=== PATIENT | female | born 1965 | race Caucasian/White ===

== ENCOUNTER → 2018-01-14 07:00 | Outpatient (CLI) | payer OTHER, SELFPAY ==
--- NOTE | 2018-01-14 07:45 | MRI_ITS ---
STUDY: MRI CERVICAL SPINE WITHOUT CONTRAST REASON FOR EXAM: Female, 52 years old. Degenerative disc disease and neck pain. TECHNIQUE: Standardized fat and water weighted pulse sequences were obtained in the sagittal and axial planes. COMPARISON: None FINDINGS: Normal foramen magnum and brainstem-cervical cord junction. Normal craniovertebral junction. Normal anterior atlantoaxial articulation. Normal odontoid process. Normal cervical lordosis. Normal vertebral bodies and posterior osseous elements. C2-3: Normal endplates. Normal disc height, signal and morphology. Normal central canal and intervertebral neural foramina. C3-4: Normal endplates. Normal disc height, signal and morphology. Normal central canal and intervertebral neural foramina. C4-5: Normal endplates. Normal disc height, signal and morphology. Normal central canal and intervertebral neural foramina. C5-6: Normal endplates. Normal disc height, signal and morphology. Normal central canal and intervertebral neural foramina. C6-7: Normal endplates. Normal disc height, signal and morphology. Normal central canal and intervertebral neural foramina. C7-T1: Normal endplates. Normal disc height, signal and morphology. Normal central canal and intervertebral neural foramina. Normal cervical cord. Normal visualized soft tissue structures. MRI/Spine Cervical (Routine) IMPRESSION: Normal unenhanced MR examination of the cervical spine. Electronically Signed: Leonard Youssef MD at 0:00 EDT , Service support ,
[2018-01-14 10:22] LABS: ALB/GLOB Ratio 1.1 RATIO (0.9-2.4); AST(SGOT) 15 U/L (15-37); Alanine Aminotransfer ALT/SGPT 28 U/L (13-56); Albumin, Serum 3.5 g/dL (3.2-5.0); Alkaline Phosphatase 80 U/L (45-117); Anion Gap 8 (5-15); BUN 15 mg/dL (7-18); BUN/Creat Ratio 22.5 RATIO (10-20); Calcium,Total 8.6 mg/dL (8.5-10.1); Chloride 106 mmol/L (98-107); Cholesterol 141 mg/dL (200); Creatinine, Serum 0.67 mg/dL (0.55-1.02); EST Glomerular Filtration Rate 98 mL/min (>60); Est Glom Filt Rate - Afr Amer 119 mL/min (>60); Globulin 3.3 g/dL (2.2-4.2); Glucose 107 mg/dL (74-106); High Density Lipoprotein 43 mg/dL; Potassium 4.3 mmol/L (3.5-5.1); Protein, Total 6.8 g/dL (6.4-8.2); Sodium Level 142 mmol/L (136-145); Thyroid Stim Hormone (TSH) 2.17 uIU/mL (0.358-3.74); Triglycerides 100 mg/dL; Very Low Density Lipoprotein 20 mg/dL (5-40)
== END ==
PROVIDERS: Family Provider Family Medicine; PCP Family Medicine; Visit Provider Family Medicine
DX: E11.9 Type 2 diabetes mellitus without complications (principal); M50.30 Other cervical disc degeneration, unspecified cervical region
CPT/HCPCS: 36415; 72141; 80053; 80061; 84443

== ENCOUNTER → 2018-01-19 16:14 | Outpatient (CLI) | payer OTHER, SELFPAY ==
--- NOTE | 2018-01-19 16:17 | BI_ITS ---
MAMMOGRAPHY - BILATERAL SCREENING REASON FOR EXAM: Female, 52 years old. Routine annual screening examination. PERTINENT HISTORY: Non-contributory. TECHNIQUE: Digital bilateral breast brittany (3D mammographic acquisition) in the CC and MLO projections. 2-D mediolateral oblique (MLO) and craniocaudad (CC) views of both breasts were obtained. CAD: Full Field Digital Mammography with Computer Added Detection was performed. COMPARISON: Comparison is made with prior study dated May 12, 2016 and November 28, 2013. FINDINGS: Breast Composition: The breasts are almost entirely fatty. There are no dominant masses or suspicious calcifications. Stable bilateral benign appearing axillary lymph nodes. No other significant abnormalities are identified. There has been no significant change since the prior study. BI/SCREENING MAMM (CAD), BILAT IMPRESSION: Stable bilateral screening mammogram. Yearly follow-up mammogram recommended. (A) ASSESSMENT CATEGORY: BIRADS Category 2: Benign. A letter regarding these results will be sent to the patient by the facility within 30 days. Approximately 10% of breast cancers are not detected by mammography. A normal mammogram should not delay biopsy of a clinically suspicious abnormality. [id number] Electronically Signed: Michael Benitez MD at 8:00 EDT Tel [phone], Service support ,
== END ==
PROVIDERS: Family Provider Family Medicine; PCP Family Medicine; Visit Provider Obstetrics & Gynecology
DX: Z12.31 Encounter for screening mammogram for malignant neoplasm of breast (principal)
CPT/HCPCS: 77063; 77067

== ENCOUNTER 2018-03-15 16:30 | Outpatient (RCR) | payer OTHER, SELFPAY ==
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
--- NOTE | 2018-03-15 17:02 | HP.PTDCSUM ---
HP - PT D/C Summary It has been my pleasure to treat KELLY ARGUETA under orders from Wilton Horn, for the diagnosis of CHRONIC NECK PAIN AND ROGER PARESTHEISIAS. for a total of 10 visit(s). Discharge Date: Please see the following information for a summary of their discharge status. - Subjective Subjective: PATIENT REPORTS THAT SHE FEELS LIKE SHE HAS COME A LONG WAY. PATIENT REPORTS SHE FEELS LIKE SHE IS GOING TO ALWAYS HAVE A LITTLE BIT OF PAIN WITH HER CONDITION. EVER SINCE SHE STARTED USING THE HOME TRACTION UNIT SHE IS ABLE TO ABOLISH HER PAIN AFTER WORK, SLEEP WELL AND GET UP WITHOUT PAIN. JUST CAME TO THIS APPOINTMENT FROM WORK AND WAS ON THE COMPUTER 95% OF THE THE DAY. STILL HOPEFUL THAT THE STANDING DESK SHE IS GOING TO GET WILL HELP. CURRENTLY HAS A HEADACHE BUT THIS IS THE ONLY ONE SHE HAS HAD IN A WEEK AND SHE THINKS IT WILL GO AWAY WITH HER HOME TX. PATIENT REPORTS SHE IS VERY HAPPY WITH THE PROGRESS SHE HAS MADE. - Pain RIGHT SHOULDER BLADE Pain Intensity (Out of 10): 1 NECK Pain Intensity (Out of 10): 1 ROGER UE'S Pain Intensity (Out of 10): 0 - Overall Improvement % Improvement: 98 - Objective Objective/Function: ALL GOALS MET. PATIENT IS HAVING MUCH LESS PAIN AND IS INDEP WITH A HOME EX PROGRAM ALONG WITH SUCCESSFUL TEST OF HOME TX UNIT. 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 ROGER UE STRENGTH. Sensory deficit: 5/5 WITH MMT'ING AND NO C/O PAIN WITH TESTING. ROGER UE LIGHT TOUCH SENSATION IS INTACT AND SYMMETRICAL. ROM deficit: ROGER UE'S WFL. Cervical Mvmt Loss: Flex: MIN. Pro: NIL. Ext: MOD. Ret: MOD. RSB: MOD. LSB: MOD. R Rot: MIN. L Rot: MOD. PATIENT DENIES INCEASED NECK PAIN WITH CERVICAL ROM TESTING ALL PLANES. Postural strength: FAIR - Goals Goal 1:: DECREASE C/O HEAD, NECK AND ROGER UE SX'S. Goal Progress: Goal Met Goal 2:: IMPROVE READING, SLEEP, WORK, DRIVING AND RECREATIONAL FUNCTION Goal Progress: Goal Met Goal 3:: INSTRUCT IN PROPHYLAXIS Goal Progress: Goal Met - Plan Plan: D/C WITH HOME CERVICAL TX UNIT ORDERED. - D/C Information If there are questions or concerns regarding this patient's physical therapy, please feel free to call me at [phone]. Thank you for the referral of this patient. Sincerely, Yesenia Sampson
== END 2018-03-15 18:12 | disposition home or self-care (01) ==
LOC: PT 16:30
PROVIDERS: Family Provider Family Medicine; PCP Family Medicine; Referring Provider Family Medicine; Visit Provider Family Medicine
DX: M54.2 Cervicalgia (principal); G89.29 Other chronic pain; R20.2 Paresthesia of skin
CPT/HCPCS: 97012; 97035; 97110; 97140; 97162; 97530

== ENCOUNTER → 2018-08-18 06:47 | Outpatient (CLI) | payer OTHER, SELFPAY ==
[2017-11-24 16:59] VITALS: BMI 32.3
--- NOTE | 2018-08-18 07:02 | RAD_ITS ---
STUDY: X-RAY - PELVIS AND RIGHT HIP REASON FOR EXAM: Female, 52 years old. Back pain and right hip pain. TECHNIQUE: 3 views of the pelvis and hip. COMPARISON: None. FINDINGS: There is a non-specific bowel gas pattern. Normal visualized soft tissue structures. Normal bilateral iliac wings, sacroiliac joints and visualized sacrum. Normal bilateral superior and inferior pubic rami. Normal pubic symphysis. Normal bilateral ischial tuberosities. Normal visualized femoral head. Normal acetabulum. Normal hip joint. RAD/HIP, UNI W/ Pelvis 2-3 Views IMPRESSION: Normal x-ray examination of the pelvis and hip. Electronically Signed: Lucho King MD at 21:47 EDT , Service support ,
--- NOTE | 2018-08-18 07:11 | RAD_ITS ---
STUDY: X-RAY - LUMBAR SPINE REASON FOR EXAM: Female, 52 years old. Back pain. TECHNIQUE: 5 view(s) of the lumbar spine were obtained. COMPARISON: None FINDINGS: Normal lumbar lordosis. There is no substantial scoliosis. There is a normal alignment of the vertebrae. Probable bilateral pars defects of L5, without anterolisthesis. There is multilevel endplate spondylosis of the lumbar vertebrae. There is multi-level degenerative disc disease with multi-level disc space narrowing. There is no demonstrated fracture. The soft tissue structures are unremarkable. RAD/L/S Spine Min 4 Views IMPRESSION: Mild degenerative changes. No acute abnormalities. Probable bilateral pars defects of L5 without anterolisthesis. Electronically Signed: Lucho King MD at 21:48 EDT , Service support ,
[2018-08-18 07:52] LABS: ALB/GLOB Ratio 1.2 RATIO (0.9-2.4); AST(SGOT) 17 U/L (15-37); Alanine Aminotransfer ALT/SGPT 29 U/L (13-56); Albumin, Serum 3.8 g/dL (3.2-5.0); Alkaline Phosphatase 83 U/L (45-117); Anion Gap 4 (5-15); BUN 17 mg/dL (7-18); BUN/Creat Ratio 24.1 RATIO (10-20); Calcium,Total 8.8 mg/dL (8.5-10.1); Chloride 109 mmol/L (98-107); Cholesterol 162 mg/dL (200); EST Glomerular Filtration Rate 92 mL/min (>60); Est Glom Filt Rate - Afr Amer 111 mL/min (>60); Globulin 3.3 g/dL (2.2-4.2); Glucose 151 mg/dL (74-106); High Density Lipoprotein 41 mg/dL; Potassium 4.3 mmol/L (3.5-5.1); Protein, Total 7.1 g/dL (6.4-8.2); Sodium Level 141 mmol/L (136-145); Triglycerides 177 mg/dL; Very Low Density Lipoprotein 35 mg/dL (5-40)
[2018-08-18 08:28] LABS: Vitamin D,25 Hydroxy 46.3 ng/mL (29.95-100.01)
== END ==
PROVIDERS: Family Provider Family Medicine; PCP Family Medicine; Referring Provider Family Medicine; Visit Provider Family Medicine
DX: E55.9 Vitamin D deficiency, unspecified (principal); M54.5 Low back pain; M25.551 Pain in right hip; E11.9 Type 2 diabetes mellitus without complications
CPT/HCPCS: 36415; 72110; 73502; 80053; 80061; 82306

== ENCOUNTER → 2019-01-24 07:59 | Outpatient (CLI) | payer OTHER, SELFPAY ==
[2019-01-24 09:03] LABS: Vitamin D,25 Hydroxy 58.4 ng/mL (29.95-100.01)
[2019-01-24 09:06] LABS: AST(SGOT) 15 U/L (15-37); Alanine Aminotransfer ALT/SGPT 27 U/L (13-56); Albumin, Serum 3.7 g/dL (3.2-5.0); Alkaline Phosphatase 95 U/L (45-117); Anion Gap 6 (5-15); BUN 15 mg/dL (7-18); BUN/Creat Ratio 21.5 RATIO (10-20); Calcium,Total 9.1 mg/dL (8.5-10.1); Chloride 108 mmol/L (98-107); Cholesterol 167 mg/dL (200); EST Glomerular Filtration Rate 93 mL/min (>60); Est Glom Filt Rate - Afr Amer 112 mL/min (>60); Globulin 3.8 g/dL (2.2-4.2); Glucose 142 mg/dL (74-106); High Density Lipoprotein 41 mg/dL; Potassium 4.4 mmol/L (3.5-5.1); Protein, Total 7.5 g/dL (6.4-8.2); Sodium Level 143 mmol/L (136-145); Thyroid Stim Hormone (TSH) 2.21 uIU/mL (0.358-3.74); Triglycerides 213 mg/dL; Very Low Density Lipoprotein 43 mg/dL (5-40)
== END ==
PROVIDERS: Family Provider Family Medicine; PCP Family Medicine; Referring Provider Family Medicine; Visit Provider Family Medicine
DX: E11.9 Type 2 diabetes mellitus without complications (principal); E55.9 Vitamin D deficiency, unspecified
CPT/HCPCS: 36415; 80053; 80061; 82306; 84443

== ENCOUNTER → 2019-08-23 08:37 | Outpatient (CLI) | payer OTHER, SELFPAY ==
[2017-11-24 16:59] VITALS: BMI 32.3
[2019-08-23 10:13] LABS: ALB/GLOB Ratio 1.1 RATIO (0.9-2.4); AST(SGOT) 18 U/L (15-37); Alanine Aminotransfer ALT/SGPT 40 U/L (13-56); Alkaline Phosphatase 88 U/L (45-117); Anion Gap 4 (5-15); BUN 13 mg/dL (7-18); BUN/Creat Ratio 17.9 RATIO (10-20); Calcium,Total 9.6 mg/dL (8.5-10.1); Chloride 105 mmol/L (98-107); Cholesterol 159 mg/dL (200); Creatinine, Serum 0.73 mg/dL (0.55-1.02); EST Glomerular Filtration Rate 88 mL/min (>60); Est Glom Filt Rate - Afr Amer 107 mL/min (>60); Globulin 3.6 g/dL (2.2-4.2); Glucose 167 mg/dL (74-106); High Density Lipoprotein 44 mg/dL; Potassium 4.1 mmol/L (3.5-5.1); Protein, Total 7.6 g/dL (6.4-8.2); Sodium Level 139 mmol/L (136-145); Triglycerides 106 mg/dL; Very Low Density Lipoprotein 21 mg/dL (5-40)
== END ==
PROVIDERS: PCP Family Medicine; Referring Provider Family Medicine; Visit Provider Family Medicine
DX: E11.9 Type 2 diabetes mellitus without complications (principal)
CPT/HCPCS: 36415; 80053; 80061

== ENCOUNTER → 2019-11-05 12:03 | Outpatient (CLI) | payer OTHER, SELFPAY ==
--- NOTE | 2019-11-05 12:07 | BI_ITS ---
MAMMOGRAPHY - BILATERAL SCREENING REASON FOR EXAM: Female, 54 years old. Routine annual screening examination. PERTINENT HISTORY: Non-contributory. TECHNIQUE: Digital bilateral breast aldair (3D mammographic acquisition) in the CC and MLO projections. 2-D mediolateral oblique (MLO) and craniocaudad (CC) views of both breasts were obtained. CAD: Full Field Digital Mammography with Computer Added Detection was performed. COMPARISON: Comparison is made with prior study dated January 19, 2018 and May 12, 2016. FINDINGS: Breast Composition: The breasts are almost entirely fatty. There are no dominant masses or suspicious calcifications. Stable small benign appearing bilateral axillary lymph nodes. No other significant abnormalities are identified. There has been no significant change since the prior study. BI/SCREEN MAMM (CAD) W/ALDAIR BILAT IMPRESSION: Stable bilateral screening mammogram. Yearly follow-up mammogram recommended. (A) ASSESSMENT CATEGORY: BIRADS Category 2: Benign. A letter regarding these results will be sent to the patient by the facility within 30 days. Approximately 10% of breast cancers are not detected by mammography. A normal mammogram should not delay biopsy of a clinically suspicious abnormality. [id number] Electronically Signed: Michael Benitez, at 13:06 EDT , Service support ,
== END ==
PROVIDERS: PCP Family Medicine; Referring Provider Obstetrics & Gynecology; Visit Provider Obstetrics & Gynecology
DX: Z12.31 Encounter for screening mammogram for malignant neoplasm of breast (principal)
CPT/HCPCS: 77063; 77067

== ENCOUNTER → 2019-12-04 09:17 | Outpatient (CLI) | payer OTHER, SELFPAY ==
[2017-11-24 16:59] VITALS: BMI 32.3
--- NOTE | 2019-12-04 10:00 | MRI_ITS ---
STUDY: MRI BRAIN WITH AND WITHOUT CONTRAST REASON FOR EXAM: Female, 54 years old. Persistant migraine syndrome, auras x 8 months, TECHNIQUE: Standardized multiplanar fat and water weighted pulse sequences were obtained. 15ml DOtarem via IV was administered for the contrast portion of the examination. COMPARISON: None. FINDINGS: Normal size of the ventricles and extra-axial spaces for the patient''s age. Normal white matter tracts of the supratentorial brain. There is no evidence for recent intracranial ischemia or other cause of cytotoxic edema on diffusion weighted imaging (DWI). Normal T2* images of the brain without demonstrated susceptibility artifact. There is no demonstrated hemosiderin stain. Normal bilateral basal ganglia. Normal thalami. There is no extra-axial fluid accumulation. Normal flow voids within the major intracranial circulation suggesting patency by spin echo criteria. Normal venous enhancement. There is no enhancing intra-axial or extra-axial abnormality. Normal sella turcica, pituitary gland, infundibular stalk, optic chiasm and hypothalamus. Normal tectal plate and pineal gland. Normal midbrain, ryder and medulla. Normal cerebellum. Normal basal cisterns. Normal bilateral temporal bones. Normal bilateral internal auditory canals. No demonstrated orbital abnormality, within the constraints of a routine brain study. Normal visualized paranasal sinuses. Normal calvarium and skull base. Normal visualized soft tissue structures. Normal visualized upper cervical spine. MRI/Brain W/WO Contrast IMPRESSION: Normal unenhanced and enhanced MRI of the brain. Electronically Signed: Luis Angel Valdivia MD at 11:15 EDT Tel , Service support ,
== END ==
PROVIDERS: PCP Family Medicine; Referring Provider Ophthalmology; Visit Provider Ophthalmology
DX: G43.809 Other migraine, not intractable, without status migrainosus (principal)
CPT/HCPCS: 70553; A9575

== ENCOUNTER → 2020-01-24 10:25 | Outpatient (CLI) | payer OTHER, SELFPAY ==
[2020-01-29 16:26] LABS: HPV APTIMA, High Risk Negative (Negative); HPV Reflexed? YES, CHARGE PATIENT
== END ==
PROVIDERS: PCP Family Medicine; Visit Provider Student in an Organized Health Care Education/Training Program
DX: Z12.4 Encounter for screening for malignant neoplasm of cervix (principal)
CPT/HCPCS: 87624; 88175; G0145

== ENCOUNTER → 2020-04-14 12:21 | Outpatient (CLI) | payer OTHER, SELFPAY ==
--- NOTE | 2020-04-14 12:22 | US_ITS ---
STUDY: SUPERFICIAL ULTRASOUND - RIGHT POPLITEAL FOSSA REASON FOR EXAM: Female, 54 years old. Right calf pain -- bakers cyst TECHNIQUE: A superficial ultrasound was performed with real-time and static salazar-scale imaging. COMPARISON: None. FINDINGS: Imaging of the right popliteal fossa was performed. No evidence of a Jolly''s cyst. US/Ext Non Vasc Limited/Soft Tiss IMPRESSION: Unremarkable sonographic evaluation of the right popliteal fossa. Electronically Signed: Michael Benitez, at 10:17 EST , Service support ,
== END ==
PROVIDERS: PCP Family Medicine; Referring Provider Family Medicine; Visit Provider Family Medicine
DX: M71.20 Synovial cyst of popliteal space [Baker], unspecified knee (principal)
CPT/HCPCS: 76882

== ENCOUNTER → 2020-07-10 08:39 | Outpatient (CLI) | payer OTHER, SELFPAY ==
[2017-11-24 16:59] VITALS: BMI 32.3
[2020-07-10 10:18] LABS: Erythrocyte Sedimentation Rate 4 mm/hr (0-30)
[2020-07-10 10:54] LABS: ALB/GLOB Ratio 1.1 RATIO (0.9-2.4); AST(SGOT) 19 U/L (15-37); Alanine Aminotransfer ALT/SGPT 32 U/L (13-56); Alkaline Phosphatase 81 U/L (45-117); Anion Gap 6 (5-15); BUN 17 mg/dL (7-18); BUN/Creat Ratio 22.5 RATIO (10-20); Calcium,Total 9.2 mg/dL (8.5-10.1); Chloride 109 mmol/L (98-107); Creatinine, Serum 0.76 mg/dL (0.55-1.02); EST Glomerular Filtration Rate 84 mL/min (>60); Est Glom Filt Rate - Afr Amer 102 mL/min (>60); Globulin 3.5 g/dL (2.2-4.2); Glucose 95 mg/dL (74-106); Potassium 4.3 mmol/L (3.5-5.1); Protein, Total 7.5 g/dL (6.4-8.2); Sodium Level 142 mmol/L (136-145); Thyroid Stim Hormone (TSH) 1.58 uIU/mL (0.358-3.74)
== END ==
PROVIDERS: PCP Family Medicine; Referring Provider Family Medicine; Visit Provider Family Medicine
DX: E11.9 Type 2 diabetes mellitus without complications (principal); M06.9 Rheumatoid arthritis, unspecified
CPT/HCPCS: 36415; 80053; 84443; 85652

== ENCOUNTER → 2021-01-06 09:15 | Outpatient (CLI) | payer OTHER, SELFPAY ==
[2021-01-06 11:14] LABS: AST(SGOT) 15 U/L (15-37); Alanine Aminotransfer ALT/SGPT 34 U/L (13-56); Albumin, Serum 3.7 g/dL (3.2-5.0); Alkaline Phosphatase 97 U/L (45-117); Anion Gap 5 (5-15); BUN 12 mg/dL (7-18); BUN/Creat Ratio 21.9 RATIO (10-20); Chloride 106 mmol/L (98-107); Cholesterol 162 mg/dL (200); Creatinine, Serum 0.55 mg/dL (0.55-1.02); EST Glomerular Filtration Rate 122 mL/min (>60); Est Glom Filt Rate - Afr Amer 147 mL/min (>60); Globulin 3.7 g/dL (2.2-4.2); Glucose 134 mg/dL (74-106); High Density Lipoprotein 42 mg/dL; Potassium 4.1 mmol/L (3.5-5.1); Protein, Total 7.4 g/dL (6.4-8.2); Sodium Level 138 mmol/L (136-145); Thyroid Stim Hormone (TSH) 1.09 uIU/mL (0.358-3.74); Triglycerides 128 mg/dL; Very Low Density Lipoprotein 26 mg/dL (5-40)
== END ==
PROVIDERS: PCP Family Medicine; Referring Provider Family Medicine; Visit Provider Family Medicine
DX: E11.9 Type 2 diabetes mellitus without complications (principal)
CPT/HCPCS: 36415; 80053; 80061; 84443

== ENCOUNTER 2021-02-19 05:47 | Day surgery (SDC) | payer OTHER, SELFPAY ==
[2021-02-16 17:25] LABS: Hematocrit 47.4 % (37-47); Hemoglobin 16.4 g/dL (12.0-15.0); Mean Corp Hgb Conc 34.6 g/dL (32-36); Mean Corpuscular Hgb 30.9 pg (27.0-32.0); Mean Corpuscular Volume 89.4 fL (81-99); Mean Platelet Vol. 9.8 fl (6.2-12.0); Platelet Count 214 K/mm3 (150-450); RBC Distribution Width CV 11.9 % (11.6-14.6); RBC Distribution Width SD 38.7 fl (35.1-43.9); White Blood Count 10.1 K/mm3 (4.4-11.0)
[2021-02-19 06:25] VITALS: BP 118/72; PULSE 90; RESP 18; TEMP 36.6; O2SAT 99; BMI 34.8
[2021-02-19] MEDS: Lactated Ringers 1,000 ML 100 ML IV (06:50)
[2021-02-19 06:56] LABS: Bedside Glucose 161 mg/dL (70-110)
--- NOTE | 2021-02-19 07:14 | HP.PCM.OB_ITS ---
History and Physical Date of Admission: 02/19/21 HISTORY OF PRESENT ILLNESS: On 02/16/2021, Radha Manzano, a 55 year old female 2 0 1 0 2, presented for dilation and curettage for irregular bleeding. Patient had an ablation in the past and had an episode of bleeding after several years. ALLERGIES: Morphine, Itching, Glucophage, Diarrhea, Amaryl, Severe itching, Shellfish, Anaphalaxis, Feldene, Gallego, Lipitor, Victoza, Latex, Rash, Dilaudid, Dilaudid, Vomiting, Morphine, Hives and/or rash, Amaryl, Rash, itching, Dilaudid, Rash, itching, Feldene, Headache, Glucophage, Intolerance-diarrhea, Latex, Rash, itching, Adhesive, Rash, Lipitor, Muscle aches, Shellfish Derived, Shortness of breath, Victoza, Excessive sweating, Levaquin and Heartburn MEDICATIONS HISTORY: Patient is also takin. Byetta 10 mcg/dose(250 mcg/mL)2.4 mL subcutaneous pen injector, As Directed twice daily 2. Livalo 4 mg tablet, One pill by mouth once a day 3. aspirin 81 mg chewable tablet, One tablet by mouth once daily 4. etodolac 400 mg tablet, One tablet by mouth 2 x daily 5. lisinopril 2.5 mg tablet, One tablet by mouth once daily 6. Vitamin D2 1,250 mcg (50,000 unit) capsule, One capsule by mouth once weekly REVIEW OF SYSTEMS: GENERAL - Denies fever, or chills SKIN - Denies skin changes EYES - Denies visual changes EARS - Denies difficulty hearing NOSE - Denies nasal congestion or bleeding MOUTH - Denies sore throat or difficulty swallowing NECK - Denies pain or swelling RESPIRATORY - Denies shortness of breath or wheezing CARDIOVASCULAR - Denies palpitations or chest pain GASTROINTESTINAL - Denies nausea, vomiting, diarrhea, constipation GENITOURINARY - Denies dysuria, frequency of urination, incontinence of urine MUSCULOSKELETAL - Denies joint or muscle pain NEUROLOGICAL - Denies localized numbness or weakness PSYCHIATRIC - Denies depression or anxiety ENDOCRINE - Denies heat or cold intolerance, weight loss or gain HEMATO-IMMUNOLOGIC - Denies excessive bleeding with cuts PAST HISTORY: Breast/Ovarian/Colon Cancers - Denies Infections - ? Illnesses - DMII, high cholesterol, Rheumatoid Arthritis and Hypertension Accidents - no injuries of consequence History of Abnormal PAPS - Denies Hospitalizations - Childbirth and see surgery DISH (tendon problem); SURGICAL HISTORY: 1. 1967 HERNIA REPAIR C SECTION-TOXEMIA 3. , C SECTION REMOVE FALLOPIAN TUBE TO END 5. 05/02/2017 rotator cuff surgery 6. 03/15/2013 left foot 7. 05/25/2000 Hysteroscopy and D and C, Hydrothermal Ablation Isidra Becerril M.D. Menorrhagia 8. 08/07/2020 (R) Hand Surgery 9. L Rotater cuff repair, [facility], 09/13 10. 05/15/2015 L achilles tendon rebuilt Dr Kalyan Deras 11. squamous cell CA of face, 11/15 MENSTRUAL HISTORY: LMP Known?- Postmenopausal, Prior Menses - 04/01/2013, LMP - 06/29/15, Age Onset Menarche - 11 PAST PREGNANCIES: Total Pregnancies - 3; Full Term Pregnancies - 2; Premature - 0; Abortions, Induced - 0; Abortions, Spontaneous - 0; Ectopics - 1; Multiple Births - 0; Living Children - 2 FAMILY HISTORY (OLD): Maternal history of DM II and Hypertension. Father: CVA. Sister: hypothyroidism. FAMILY HISTORY: Father - CVA; Sister - FH: Hypothyroidism; SOCIAL HISTORY: Alcohol Use - RARELY Smoking - 1/2 pack/day--advised to quit BP- 148/88 Sitting R Forearm Weight- [id number] lbs Height- 64.5 inch BMI:34.74 CONSTITUTIONAL - NAD, well nourished, and well developed SKIN - No rash, lesions, or ulcers HEENT - Normocephalic, PERRLA, EOMI LUNGS - normal respiratory rate and rhythm EXTREMITIES - No edema or calf tenderness NEUROLOGICAL - Cranial nerves II-XII grossly intact PSYCHIATRIC - A and O to time, place, person, mood and affect ASSESSMENT/PLAN: 1. Irregular Menstrual Cycle One episode of brown discharge. Pt is s/p ablation. No evidence of menopause. ES 4.66 mm with fluid in endometrial canal. Likely cervical stenosis keeping fluid or blood inside uterus. Borderline ES measurement for postmenopausal pt (but without symptoms or lab evidence), confounded by hx of ablation Patient plan for hysteroscopy, dilation and curettage. Risks/benefits/alternatives were discussed with patient. Risks include but are not limited to: Risk of bleeding to the point of transfusion, infection, injury to surrounding tissue including uterine perforation, VTE, ICU admission. Consented
--- NOTE | 2021-02-19 07:30 | EMB_PTH ---
PATIENT: KELLY ARGUETA [place] [facility] [place][id number] AGE/SX: 55/F ROOM: RE02/19/[address]: Dr. Mya Blevins DO : 1965 BED: DIS: 02/19/2021 SPEC #: [id number] RECD: 02/19/21 09:26 STATUS: BRITTANEY ANICETO #: [id number] CARLOS: 02/19/21 07:[address]: Mya Blevins DEPT: SURGICAL PATHOLOGY RECD BY: Kathya Waller ENTERED: 02/19/21 11:13 SP TYPE: ENDOM BX/C NOLAN DR: Dr. Wilton Horn MD Tissues: Endometrium, NOS Procedures: Surgery Specimen Level IV HEADER OPERATION: Hysteroscopy, dilation and curettage PRE-OP DIAGNOSIS: Irregular menstrual cycle TISSUE SUBMITTED: Endometrial curettings MICROSCOPIC DIAGNOSIS Endometrium, curettings: Scant strips of benign superficial glandular and squamous mucosa. See comment. AM:evita 02/20/2021 COMMENT The specimen primarily consists of mucoid material. Clinical correlation is suggested. MICROSCOPIC DESCRIPTION Slides are reviewed. GROSS DESCRIPTION Received in fixative is one container labeled with the patient's name and designated endometrial curettings. The specimen consists of multiple irregular fragments of pink soft tissue that in aggregate measure 2.5 x 1 x 0.2 cm. The specimen is totally submitted in one cassette. / SJ:evita 02/19/21 TC:5 CPT: 66538
--- NOTE | 2021-02-19 07:46 | PCM.OPRPT ---
Report of Operation Date of Procedure: 02/19/21 Pre-Operative Diagnosis: Post Menopausal Bleeding Post-Operative Diagnosis: Post Menopausal Bleeding Surgery/Procedure Performed:: Hysteroscopy, Dilation and curettage Description of Surgical Findings:: Normal appearing external genitalia, thin endometrial cavity, Brown fluid in endometrial cavity Type of Anesthesia: MAC Specimen's removed: Endometrial curettings Estimated Blood Loss (mL): 5cc Fluids Replaced: 500cc Description of Procedure: Patient taken to back to the operating room and MAC anesthesia initiated. Patient placed in the dorsal lithotomy position and prepped and draped in the usual sterile fashion. Weighted speculum placed in the posterior vagina and Flores retractor used to visualize anterior lip of the cervix which was grasped with an Allis clamp. Cervix sequentially dilated. Hysteroscope placed through the cervical canal and inspection of the endometrial cavity completed in a 360 degree manner. Note above findings. Curettage then completed in a 360 degree manner. Allis clamp removed, retractor removed. At the end of the procedure all needle, lap, sponge counts were correct. No urine output measured. Complications None
--- NOTE | 2021-02-19 07:48 | PCM.DC ---
Discharge Instructions Diet Discharge Diet: No restrictions Activity Discharge Activity: Return to Normal Activity and May Shower May resume sexual activity in: 2 weeks Weight Bearing Status: Weight bearing as tolerated Lifting Restrictions: None Dressing / Incision Call your doctor if you observe: Fever of 101 or Higher, Inability to urinate, Using more than 1 pad per hour, Shortness of breath, Dizziness, Chest pain and Calf discomfort Follow Up Care Please Follow Up With: Mya Blevins DO When: 2 weeks post operative visit Test Results: Test results from this visit will be discussed in further detail at your follow-up appointment, if applicable. Discharge Plan Admission Primary Reason for Your Visit: Hysteroscopy, D&C Attending Provider: Mya Blevins Primary Care Provider: Mina Horn Discharge Orders/Prescriptions Prescriptions: No Action exenatide 10 mcg/dose(250 mcg/mL)2.4 mL subcutaneous pen injector 10 mcg/dose(250 mcg/mL) 2.4 mL pen injector 10 mcg SC BID RF: 0 cholecalciferol (vitamin D3) 50,000 unit capsule 50,000 unit PO QWEEK RF: 0 lisinopril 2.5 mg tablet 2.5 mg PO QHS RF: 0 pitavastatin calcium [Livalo] 2 mg tablet 2 mg PO QHS RF: 0 etodolac 400 mg tablet 400 mg PO BID RF: 0 aspirin [Aspir-81] 81 mg Tablet,Delayed Release (Dr/Ec) 81 mg PO QHS RF: 0 Referrals / Follow Up: Mina Horn MD [Primary Care Provider] - Disposition Disposition (needs filled in before D/C Order can be placed): Home, Self Care
[2021-02-19 07:50] VITALS: BP 118/72; BP 133/93; PULSE 94; RESP 16; TEMP 36.2; O2SAT 93
[2021-02-19 07:55] VITALS: BP 118/72; BP 141/86; PULSE 89; RESP 16; O2SAT 96
[2021-02-19 08:00] VITALS: BP 118/72; BP 131/81; PULSE 94; RESP 16; O2SAT 95
[2021-02-19 08:05] VITALS: BP 118/72; BP 136/83; PULSE 82; RESP 16; TEMP 36.6; O2SAT 95
[2021-02-19 08:37] VITALS: BP 106/71; BP 118/72; PULSE 87; RESP 16; TEMP 36.3; O2SAT 94
--- NOTE | 2021-02-19 08:39 | SUR.PHASEII ---
Patient reports dizziness during the day at work. VSS. BP within 20% of baseline. This nurse recommends speaking with PCP about home medications and report dizziness.
== END 2021-02-19 08:43 | disposition home or self-care (01) ==
LOC: SDC 05:48 → AC 05:48
PROVIDERS: PCP Family Medicine; Referring Provider Student in an Organized Health Care Education/Training Program; Visit Provider Student in an Organized Health Care Education/Training Program
PROC: 0UDB8ZZ Extraction of Endometrium, Via Natural or Artificial Opening Endoscopic (ICD-10-PCS; CPT 58558; principal; 2021-02-19 07:20)
DX: N95.0 Postmenopausal bleeding (principal); I10 Essential (primary) hypertension; E11.9 Type 2 diabetes mellitus without complications; E78.00 Pure hypercholesterolemia, unspecified; M06.9 Rheumatoid arthritis, unspecified; M19.90 Unspecified osteoarthritis, unspecified site; F17.200 Nicotine dependence, unspecified, uncomplicated; Z79.82 Long term (current) use of aspirin; Z79.899 Other long term (current) drug therapy; Z20.822 Contact with and (suspected) exposure to COVID-19
CPT/HCPCS: 58558; 36415; 82962; 85027; 86850; 86900; 86901; 87426; 88305; J7120

== ENCOUNTER → 2021-04-07 15:34 | Outpatient (CLI) | payer OTHER, SELFPAY ==
--- NOTE | 2021-04-07 15:36 | BI_ITS ---
MAMMOGRAPHY - BILATERAL SCREENING REASON FOR EXAM: Female, 55 years old. Routine annual screening examination. PERTINENT HISTORY: Non-contributory. TECHNIQUE: Digital bilateral breast aldair (3D mammographic acquisition) in the CC and MLO projections. 2-D mediolateral oblique (MLO) and craniocaudad (CC) views of both breasts were obtained. CAD: Full Field Digital Mammography with Computer Added Detection was performed. COMPARISON: Comparison is made with prior study dated 11/05/2019 and 01/19/2018. FINDINGS: Breast Composition: The breasts are almost entirely fatty. There are no dominant masses or suspicious calcifications. Stable small benign-appearing bilateral axillary lymph nodes. No other significant abnormalities are identified. There has been no significant change since the prior study. BI/SCRN MAMM (CAD)W/ALDAIR BILAT IMPRESSION: Stable bilateral screening mammogram. Yearly follow-up mammogram recommended. (A) ASSESSMENT CATEGORY: BIRADS Category 2: Benign. A letter regarding these results will be sent to the patient by the facility within 30 days. Approximately 10% of breast cancers are not detected by mammography. A normal mammogram should not delay biopsy of a clinically suspicious abnormality. [id number] Electronically Signed: Michael Benitez MD at 8:11 EST , Service support ,
== END ==
PROVIDERS: PCP Family Medicine; Visit Provider Student in an Organized Health Care Education/Training Program
DX: Z12.31 Encounter for screening mammogram for malignant neoplasm of breast (principal)
CPT/HCPCS: 77063; 77067

== ENCOUNTER 2021-07-21 08:11 | Outpatient (CLI) | payer OTHER, SELFPAY ==
[2021-07-21 10:10] LABS: AST(SGOT) 17 U/L (15-37); Alanine Aminotransfer ALT/SGPT 32 U/L (13-56); Albumin, Serum 3.8 g/dL (3.2-5.0); Alkaline Phosphatase 99 U/L (45-117); Anion Gap 5 (5-15); BUN 13 mg/dL (7-18); BUN/Creat Ratio 18.2 RATIO (10-20); Calcium,Total 9.3 mg/dL (8.5-10.1); Chloride 108 mmol/L (98-107); Cholesterol 157 mg/dL (200); Creatinine, Serum 0.71 mg/dL (0.55-1.02); EST Glomerular Filtration Rate 90 mL/min (>60); Est Glom Filt Rate - Afr Amer 108 mL/min (>60); Globulin 3.7 g/dL (2.2-4.2); Glucose 137 mg/dL (74-106); High Density Lipoprotein 38 mg/dL; Potassium 4.3 mmol/L (3.5-5.1); Protein, Total 7.5 g/dL (6.4-8.2); Sodium Level 140 mmol/L (136-145); Triglycerides 170 mg/dL; Very Low Density Lipoprotein 34 mg/dL (5-40)
== END 2021-07-21 23:59 | disposition home or self-care (01) ==
LOC: MTLAB 08:11
PROVIDERS: PCP Family Medicine; Referring Provider Family Medicine; Visit Provider Family Medicine
DX: E11.9 Type 2 diabetes mellitus without complications (principal)
CPT/HCPCS: 36415; 80053; 80061; 84443

== ENCOUNTER → 2021-08-25 | Outpatient (CLI) | payer OTHER, SELFPAY ==
--- NOTE | 2021-08-25 09:06 | RAD_ITS ---
STUDY: X-RAY CHEST REASON FOR EXAM: Female, 55 years old. Chest pain/pressure TECHNIQUE: 2 PA and lateral views of the chest. COMPARISON: None. FINDINGS: The lungs are clear and expanded. There is no demonstrated pleural abnormality. Normal size heart. Normal mediastinum and callie. Normal visualized pulmonary arteries. Normal visualized aortic arch and descending thoracic aorta. Normal visualized thoracic spine. Normal visualized ribs, clavicles, and shoulders. There is no demonstrated abnormality of the visualized soft tissue structures of the upper abdomen. RAD/Chest PA and Lateral IMPRESSION: Normal x-ray examination of the chest. Electronically Signed: Jono Shore MD at 13:34 EDT ,
== END | disposition home or self-care (01) ==
LOC: MTRAD 09:04
PROVIDERS: PCP Family Medicine; Referring Provider Family Medicine; Visit Provider Family Medicine
DX: M25.519 Pain in unspecified shoulder (principal)
CPT/HCPCS: 71046

== ENCOUNTER → 2021-10-05 | Outpatient (CLI) | payer OTHER, SELFPAY ==
--- NOTE | 2021-10-05 08:17 | US_ITS ---
STUDY: ULTRASOUND OF THE FEMALE PELVIS - COMPLETE REASON FOR EXAM: Female, 55 years old. Abnormal uterine bleeding. LMP: Patient is postmenopausal. TECHNIQUE: Transvaginal TECHNICAL QUALITY: Adequate. COMPARISON: None. FINDINGS: The uterus is anteverted and is in a midline position. The uterus measures 7.2 cm x 4.7 cm x 3.4 cm. There is a Nabothian cyst of the cervix. The endometrium measures 5.4 mm in thickness, and is . There is no demonstrated endometrial mass. There is no demonstrated myometrial mass. I.U.D. - The patient does not have an I.U.D. The right ovary is visualized. The right ovary measures 1.4 cm x 1.4 cm x 1.4 cm. There is no right ovarian cyst or ovarian mass. There is no visualized right adnexal mass or complex lesion. There is normal arterial and normal venous vascularity. The left ovary is visualized. The left ovary measures 1.6 cm x 1.1 cm x 1.1 cm. There is no left ovarian cyst or ovarian mass. There is no visualized left adnexal mass or complex lesion. There is normal arterial and normal venous vascularity. There is no fluid in the cul-de-sac. US/Transvaginal Non- IMPRESSION: Endometrial thickening measuring 5.4 mm. Electronically Signed: Michael Benitez MD at 11:15 EDT ,
== END | disposition home or self-care (01) ==
LOC: OPUS 08:16
PROVIDERS: PCP Family Medicine; Referring Provider Obstetrics & Gynecology; Visit Provider Obstetrics & Gynecology
DX: N93.9 Abnormal uterine and vaginal bleeding, unspecified (principal)
CPT/HCPCS: 76830

== ENCOUNTER → 2021-11-26 | Outpatient (CLI) | payer OTHER, SELFPAY ==
--- NOTE | 2021-11-26 07:09 | CT_ITS ---
HISTORY: right sternoclavicular joint pain. TECHNIQUE: Helically acquired images were obtained of the chest without contrast. A radiation dose optimization technique was used for this scan. 984 images. COMPARISON: XR 08/25/2021. FINDINGS: LARGE AIRWAYS: Patent. LUNGS: Clear. PLEURA: No pneumothorax or significant pleural effusion. HEART/PERICARDIUM: Heart within normal limits in size. Coronary artery calcification present. No pericardial effusion. VESSELS: Thoracic aorta nondilated. MEDIASTINUM/SHASHI: No pathologically enlarged adenopathy. UPPER ABDOMEN: Unremarkable. BONES: Mild sclerosis and periosteal reaction of the right medial clavicle with mild sclerosis and small subchondral cysts/erosions of the adjacent sternum. Associated synovial thickening. Diffuse idiopathic skeletal hyperostosis with bridging osteophytes in the thoracic spine. CT/Chest without Contrast IMPRESSION: Osteitis and mild hyperostosis of the right sternoclavicular joint with small erosions and synovitis, concerning for inflammatory arthritis and raising the possibility of SAPHO syndrome. Septic arthritis could have a similar appearance. Electronically Signed: Sara Mohr MD at 12:24 EDT ,
== END | disposition home or self-care (01) ==
PROVIDERS: PCP Family Medicine; Referring Provider Family Medicine; Visit Provider Family Medicine
DX: M25.511 Pain in right shoulder (principal)
CPT/HCPCS: 71250

== ENCOUNTER → 2022-02-03 | Outpatient (CLI) | payer OTHER, SELFPAY ==
[2022-02-03 10:38] LABS: Anion Gap 6 (5-15); BUN 15 mg/dL (7-18); BUN/Creat Ratio 20.2 RATIO (10-20); Calcium,Total 9.7 mg/dL (8.5-10.1); Chloride 109 mmol/L (98-107); Cholesterol 163 mg/dL (200); Creatinine, Serum 0.74 mg/dL (0.55-1.02); EST Glomerular Filtration Rate 85 mL/min (>60); Est Glom Filt Rate - Afr Amer 103 mL/min (>60); Glucose 121 mg/dL (74-106); High Density Lipoprotein 43 mg/dL; Potassium 4.2 mmol/L (3.5-5.1); Sodium Level 141 mmol/L (136-145); Triglycerides 146 mg/dL; Very Low Density Lipoprotein 29 mg/dL (5-40)
== END | disposition home or self-care (01) ==
LOC: MFPLAB 08:45
PROVIDERS: PCP Family Medicine; Referring Provider Family Medicine; Visit Provider Family Medicine
DX: E11.9 Type 2 diabetes mellitus without complications (principal)
CPT/HCPCS: 36415; 80048; 80061

== ENCOUNTER 2022-02-23 05:18 | Day surgery (SDC) | payer OTHER, SELFPAY ==
--- NOTE | 2022-02-10 12:12 | EKG12_ITS ---
Test Reason : PREOP Blood Pressure : / mmHG Vent. Rate : 090 BPM Atrial Rate : 090 BPM P-R Int : 136 ms QRS Dur : 082 ms QT Int : 358 ms P-R-T Axes : 056 048 033 degrees QTc Int : 437 ms Normal sinus rhythm Normal ECG Confirmed by LESLIE PORRAS, ESTHER ([id number]), editor & co founder CHLOE ALEX ([id number]) on 02/11/2022 12:49:22 PM Referred By: Nina Tran Confirmed By:ESTHER NELSON MD
[2022-02-10 12:56] LABS: Hematocrit 49.4 % (37-47); Hemoglobin 16.5 g/dL (12.0-15.0); Mean Corp Hgb Conc 33.4 g/dL (32-36); Mean Corpuscular Hgb 30.9 pg (27.0-32.0); Mean Corpuscular Volume 92.5 fL (81-99); Mean Platelet Vol. 9.7 fl (6.2-12.0); Platelet Count 190 K/mm3 (150-450); RBC Distribution Width SD 44.2 fl (35.1-43.9); Red Blood Count 5.34 M/mm3 (4.2-5.4); White Blood Count 8.7 K/mm3 (4.4-11.0)
[2022-02-10 13:20] LABS: Magnesium 1.9 mg/dL (1.6-2.6)
[2022-02-10 13:32] LABS: Hemoglobin A1c 6.7 % (3.8-5.6)
--- NOTE | 2022-02-22 23:15 | HP.PCM_ITS ---
History and Physical Date of Admission: 02/23/22 History and Physical Intake Vital Signs ? 08/12/2212:41 10/14/2214:25 02/12/2209:04 Height 5 ft 4 in 5 ft 4 in 5 ft 4 in Weight: ? 203 lb 203 lb 2 oz BMI ? 34.8 34.8 BP ? 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 Allergies metformin Allergy (Intermediate, Verified 02/12/22 09:04) diarrheapravastatin Allergy (Intermediate, Verified 02/12/22 09:04) diarrheaSulfa (Sulfonamide Antibiotics) Allergy (Intermediate, Verified 02/12/22 09:04) vomitingatorvastatin [From Lipitor] Allergy (Mild, Verified 02/12/22 09:04) pain in legsfenofibrate Allergy (Mild, Verified 02/12/22 09:04) heartburnglimepiride Allergy (Mild, Verified 02/12/22 09:04) Rashhydromorphone Allergy (Mild, Verified 02/12/22 09:04) vomitinglevofloxacin [From Levaquin] Allergy (Mild, Verified 02/12/22 09:04) heartburnliraglutide [From Victoza] Allergy (Mild, Verified 02/12/22 09:04) heat sensationmorphine Allergy (Mild, Verified 02/12/22 09:04) Itchingpiroxicam Allergy (Mild, Verified 02/12/22 09:04) headacheadhesive tape Allergy (Verified 02/12/22 09:04) Rash Medications etodolac 400 mg tablet 400 mg PO BID 11/21/17 [History Confirmed 02/12/22] pitavastatin calcium 2 mg tablet (Livalo) 2 mg PO QHS 11/21/17 [History Confirmed 02/12/22] cholecalciferol (vitamin D3) 25 mcg (1,000 unit) capsule 25 mcg PO DAILY 07/30/21 [History Confirmed 02/12/22] dulaglutide 1.5 mg/0.5 mL subcutaneous pen injector (Trulicity) 1.5 mg subcut QWEEK 02/09/22 [History Confirmed 02/12/22] empagliflozin 10 mg tablet (Jardiance) 10 mg PO DAILY 02/09/22 [History Confirmed 10/14/22] PFSH Medical History? Arthritis Back pain Bilateral headaches Cancer Diabetes Diabetes Dietary restriction DISH (diffuse idiopathic skeletal hyperostosis) DVT (deep venous thrombosis) High cholesterol History of edema history of L shoulder surgery Hypertension Hypertension Osteoarthritis Rheumatoid arthritis Rheumatoid arthritis Smoker Squamous cell cancer of buccal mucosa Vitamin D deficiency Wears glasses Surgical History? History of History of delivery History of eye surgery History of hernia repair Hx of Achilles tendon repair Hx of foot surgery Hx of hand surgery Hx of oophorectomy Hx of shoulder surgery Hx of thumb surgery Hx of umbilical hernia repair Family History? Mother HypertensionFather CVA (cerebral vascular accident)Grandfather?? ,? smoker Lung cancer Social History? Smoking Status:? Current every day smoker tobacco type: cigarettes alcohol intake:? never substance use type:? does not use caffeine:? Yes what type of physical activity do you participate in:? none seatbelt use:? always do you feel safe at home:? Yes additional social history:? 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 She is now ready to discuss hysterectomy. pt has a 5 mm endometrium and last biopsy was benign less than a year ago. She wants to go off hormones and is ready for removal of the ovaries. She has a h/o ectopic and 2 sections. ULtrasound report: REASON FOR EXAM: ? Female, 55 years old.? Abnormal uterine bleeding. ? LMP: Patient is postmenopausal. TECHNIQUE: ? Transvaginal TECHNICAL QUALITY: ? Adequate. COMPARISON: ? None. FINDINGS: The uterus is anteverted and is in a midline position.? The uterus measures 7.2 cm x 4.7 cm x 3.4 cm.? There is a Nabothian cyst of the cervix.? The endometrium measures 5.4 mm in thickness, and is .? There is no demonstrated endometrial mass.? There is no demonstrated myometrial mass. I.U.D. - The patient does not have an I.U.D. The right ovary is visualized.? The right ovary measures 1.4 cm x 1.4 cm x 1.4 cm.? There is no right ovarian cyst or ovarian mass.? There is no visualized right adnexal mass or complex lesion. There is normal arterial and normal venous vascularity. The left ovary is visualized.? The left ovary measures 1.6 cm x 1.1 cm x 1.1 cm.? There is no left ovarian cyst or ovarian mass.? There is no visualized left adnexal mass or complex lesion.? There is normal arterial and normal venous vascularity. There is no fluid in the cul-de-sac. US/Transvaginal Non- IMPRESSION: Endometrial thickening measuring 5.4 mm. History ? ? ? 3 ? Elective abortions ? Hx ParaA ? ? ? 2 ? Spontaneous abortions ? Hx # Term Pregnancies ? Ectopic pregnancies ? ? ? 1 Hx # Pregnancies ? Multiple births ? # of living children ? ? ? 2 Past Pregnancies Del. Date Name GA/Weeks Outcome Route Bth Weight Infant Gen Labor Lgth Anesthesia Del Locatn Provider FOB Unknown 1987 Ectopic ? Unknown 1989 Maxime ? live - full term C-sec tion ? Unknown 1991 Chandan ? live - full term C-s ection ? ROS Const ROS Unobtainable: All systems reviewed & are unremarkable except as noted in H Resp Resp: Reports system reviewed and no additional complaints, except as documented; Denies cough GI GI: Reports as per HPI Psych Psych: Reports system reviewed and no additional complaints, except as docum ented Exam Const General: cooperative, healthy appearing, comfortable and no acute distress Eyes General: appearance normal, both eyes and all related structures Neck Neck: normal visual inspection and no lymphadenopathy Chest Chest palpation & inspection: normal inspection of the chest Breast inspection: normal inspection of the breasts and normal inspection of the axillae Resp Effort & Inspection: normal respiratory effort Auscultation: clear to auscultation bilaterally Cardio Rate: regular rate Rhythm: regular rhythm GI Inspection: normal to inspection Palpation: soft and no hepatosplenomegaly Auscultation: normal bowel sounds Skin General: no rashes or lesions noted Psych Appearance: grossly normal Speech and Movement: speech and movement normal Coding Level of Care Code Off vis,est,level 5 Diagnoses Abnormal uterine bleeding? N93.9 Assessment and Plan Assessment and Plan (1) Abnormal uterine bleeding: ?Status:?Acute ?Comment: vs postmenopausal bleeding D&C 01/2021 ?Plan: After discussing the patient's diagnosis and treatment plan options, patient wishes to proceed with surgical management.? I have discussed with the patient the risks, benefits, and alternatives of the procedure which include but are not limited to risks of anesthesia, bleeding, infection, possible damage to bowel, bladder, or surrounding vasculature which could lead to additional surgery to evaluate any complications.? Patient agrees to procedure and wishes to proceed.? ACOG/uptodate references given for additional information regarding procedure.? The uterus is measuring 7 cm plan for TRH BSO, cysto. consent signed today plan for percocet + phenergan for home after surgery UPDATE- I have seen the patient and performed any clinically relevant updates to the history and physical exam. Nina Tran, DO
[2022-02-23] VITALS (11 sets, daily range): BP systolic 74–146; BP diastolic 55–84; PULSE 57–93; RESP 16–18; TEMP 36.2–36.7; O2SAT 90–100; BMI 34.0
[2022-02-23 06:08] LABS: Internal QC Validated? YES +Cl - CLEAR BKGD; Pregnancy, Urine Negative Negative
[2022-02-23] MEDS: Acetaminophen 500 MG Tablet 1000 MG PO (06:08)
[2022-02-23] MEDS: Gabapentin 600 MG Tablet PO (06:08)
[2022-02-23] MEDS: Celecoxib 200 MG Capsule 400 MG PO (06:09)
[2022-02-23] MEDS: Magnesium 2 GM for ERAS IV (06:09)
[2022-02-23] MEDS: Lactated Ringers 1,000 ML 40 ML IV (06:10)
[2022-02-23 06:46] LABS: Bedside Glucose 136 mg/dL (74-106)
--- NOTE | 2022-02-23 07:30 | HYST_PTH ---
PATIENT: KELLY ARGUETA [place] [facility] [id number] AGE/SX: 56/F ROOM: RE02/23/[address]: Dr. Nina Tran DO : 1965 BED: DIS: 02/23/2022 SPEC #: [id number] RECD: 02/23/22 14:32 STATUS: BRITTANEY MORELAND #: [id number] CARLOS: 02/23/22 07:[address]: Nina Tran DEPT: SURGICAL PATHOLOGY RECD BY: Aleida Rodriguez ENTERED: 02/24/22 08:19 SP TYPE: HYSTERECT OTHR DR: Dr. Wilton Horn MD Tissues: Uterus, NOS Procedures: Surgery Specimen Level V HEADER OPERATION: ERAS, total robotic hysterectomy, left salpingectomy, bilateral oophorectomy PRE-OP DIAGNOSIS: Abnormal uterine bleeding TISSUE SUBMITTED: Uterus, cervix, left fallopian tube, bilateral ovaries MICROSCOPIC DIAGNOSIS Uterus, hysterectomy: Cervix ? nabothian cysts and mild chronic inflammation. Endometrium ? secretory endometrium with degenerative change. Myometrium ? leiomyoma. Right ovary ? corpora albicantia. Left ovary - corpora albicantia. Left fallopian tube - No pathologic change. AM:evita 02/25/2022 MICROSCOPIC DESCRIPTION Slides are reviewed. GROSS DESCRIPTION Received in fixative is one container labeled with the patient's name and designated uterus. The specimen consists of a uterus with attached cervix, right and left ovaries and left fallopian tube. The uterus with cervix measures 8 x 5.5 x 4 cm and weighs 67 gm. The ectocervix is unremarkable. The cervical os is oval in contour. The endocervical canal measures 3.4 cm in length and is grossly unremarkable. The triangular endometrial cavity measures 3 x 3 cm. The velvety, reddish-booker endometrium measures up to 0.2 cm in thickness. The myometrium measures 2 cm in average thickness and contains a small, rubbery booker nodule measuring 5 mm in greatest dimension. The smooth, glistening right ovary measures 3 x 2 x 1 cm. Serial sections do not reveal mass lesions. The left ovary is similar in appearance and measures 2.5 x 1.8 x 1 cm. Serial sections of the left ovary likewise do not reveal mass lesions. The left fallopian tube measures 5 cm in length and 0.5 cm in average diameter. A normal fimbriated end is present. No tubo-ovarian adhesions are identified. Chief Guard sections are submitted in nine cassettes as follows: 1 - anterior cervix, 2 - posterior cervix, 3 & 4 - anterior uterine wall, 5 & 6 - posterior uterine wall, 7 - myometrial nodule, 8 - right ovary, 9 - left ovary and fallopian tube. / JYOTI:evita 02/24/2022 TC:1 CPT: 70138
--- NOTE | 2022-02-23 07:35 | DCINST_ITS ---
Discharge Instructions Diet Discharge Diet: No restrictions Activity May resume sexual activity in: 6 weeks Weight Bearing Status: Full weight bearing Dressing / Incision Call your doctor if your incision/area has: Continuous Slow Oozing, Sudden Increased Bleeding, Increased Pain/ Swelling, Increased Redness and Foul Smelling Discharge Call your doctor if you observe: Fever of 101 or Higher, Using more than 1 pad per hour, Shortness of breath, Chest pain and Uncontrolled pain Suture Line Care: Avoid Pulling/Pushing and Avoid Pinching/Bending Remove Dressing in: 1 week (if present) Cleanse incision/area with: Soap & Water and Keep Dressing Clean & Dry Follow Up Care Please Follow Up With: Nina Tran DO When: Call to make an appointment with your doctor for a postop visit in 2 and 6 weeks Test Results: Test results from this visit will be discussed in further detail at your follow- up appointment, if applicable. Discharge Plan Admission Primary Reason for Your Visit: hysterectomy Attending Provider: Nina Tran Primary Care Provider: Mina Horn Discharge Orders/Prescriptions Prescriptions: New ibuprofen 800 mg tablet 800 mg PO Q8H PRN (Reason: pain) 7 Days Qty: 30 0RF oxycodone-acetaminophen [Percocet] 5-325 mg tablet 1 tab PO Q4H PRN (Reason: pain) 7 Days Qty: 30 0RF Continued pitavastatin calcium [Livalo] 2 mg tablet 2 mg PO QHS etodolac 400 mg tablet 400 mg PO BID cholecalciferol (vitamin D3) 25 mcg (1,000 unit) capsule 25 mcg PO DAILY Jardiance 10 mg tablet 10 mg PO DAILY Trulicity 1.5 mg/0.5 mL pen injector 1.5 mg SUBCUT QWEEK Other Ambulatory Orders: 12 Lead EKG (Routine) Timeframe: [id number] Location: None Selected Ordered By: Dr. Paul West Referrals / Follow Up: Mina Horn MD [Primary Care Provider] - Disposition Disposition (needs filled in before D/C Order can be placed): Home, Self Care
[2022-02-23] MEDS: Cefazolin 2 GM in 0.9% Normal Saline 100 ML IV (07:45)
[2022-02-23] MEDS: Bupivacaine 0.25% 30 ML Vial (08:15)
[2022-02-23] MEDS: Ondansetron 4 MG/2 ML Vial IV (08:58)
--- NOTE | 2022-02-23 08:58 | PCM.OP.BLANK ---
Problems Associated Problem List Diagnoses (1) Abnormal uterine bleeding: Operative Report Date of Procedure: 02/23/22 Preoperative diagnosis: Abnormal uterine bleeding, persistence of thickened endometrium Postoperative diagnosis: Abnormal uterine bleeding, persistence of thickened endometrium, pelvic adhesions Procedure: Total robotic hysterectomy left salpingectomy, bilateral oophorectomy,, lysis of adhesions, and cystoscopy Anesthesia: General endotracheal intubation Estimated blood loss: 30cc Urine output:1000cc Fluids: 1 Liter, crystalloid Drains: None Implanted material: None Complications: None Findings: 8cm size uterus, normal appearing ovaries and tubes. On exploration of the abdominal cavity the uterus, adnexa, bowel, and liver were found to be normal. Cystoscopy showed no evidence of leaking at approximately 250 cc of normal saline, positive ureteral orifices and jet flow are seen and no suture material was appreciated in the bladder. Specimens removed: Uterus and cervix, Bilateral tubes and ovaries Reason for surgery: This is a -year-old G3, P2 who presented to my office with history of heavy vaginal bleeding, history of 2 sections and a ruptured ectopic . She is moderately obese with a BMI of 34. The planned procedure is for a robotic hysterectomy the risks benefits and alternatives were discussed with the patient the patient had a clear understanding of the procedure and a consent form was signed. Procedure: The patient was placed in the dorsal low lithotomy position and prepped and draped in the normal sterile fashion both abdominally and in the perineum. Her legs were placed in stirrups a Choudhary catheter was inserted into the urethra without difficulty. A weighted speculum was placed in the vagina and a single-tooth tenaculum was used to grasp the anterior lip of the cervix. A small Advincula uterine manipulator was inserted through the cervix without complication. It was then tied into place at the 2 and 10:00 locations on the cervix. Gloves were changed and attention was turned towards the abdomen. Approximately 23 cm above the pubic symphysis in the midline, and after Marcaine injection, a 8 mm incision was made. An 8 mm trocar was inserted through the laparoscope, then inserted into the abdomen under direct visualization using the laparoscope. Good abdominal placement was noted and no complications were appreciated. An air seal device was utilized to create pneumoperitoneum. At 12 cm lateral to the midline on the left and right sides 8 mm accessory ports were placed. Next a left upper quadrant 8 mm office manager executive assistant port site was placed. The patient was placed in steep Trendelenburg position. The robot was docked. The hysterectomy was initiated first by taking down the round ligament on each side using the vessel sealer device. The peritoneum between the round ligament and the IP ligament was opened using electrocautery and extended the length of the IP ligament. The IP ligament was then taken down using the vessel sealer device. These areas were freed without complication the broad ligament was then and taken down using the vessel sealer device. The right fallopian tube was noted to be surgically absent. Next the bladder flap was taken down without complication. This was done using monopolar cautery to the level of the cervical vaginal junction. After the bladder flap was created, uterine vessels were then isolated and cauterized using the vessel sealer device and EndoShears. At this point the uterine vessels were taken down further starting from the ascending branch, dissecting along the edges of the cervix to the level of the cervical vaginal junction with hemostasis appreciated. The cervical vaginal junction was then using monopolar cautery in a circumferential pattern across the superior aspect of the cervix. The specimen was delivered through the vagina and sent to pathology. The remaining vaginal cuff was then closed using a V- lock suture. This was performed in a running technique. Excellent hemostasis was obtained and good closure was noted. Irrigation was then performed. All operative sites were noted to be hemostatic. A cystoscopy was performed with a 70 degree cystoscope through the urethra into the bladder without complication. The bladder was instilled with approximately 250 cc of normal saline. Intraoperative images were made. Ureteral orifices and jets were identified. No suture material was appreciated in the bladder. The bladder was then drained and cystoscope was removed. The abdominal cavity was again examined using the laparoscope after the robot was undocked. All operative sites were noted to be hemostatic. The trochars were removed under direct visualization without complication and pneumoperitoneum was reduced. At this point the skin was then closed using 4-0 Monocryl subcuticular stitch and sealed with surgical glue. The patient tolerated the procedure well sponge lap and needle counts were correct x2 the patient was taken to the recovery room in stable condition. Multi Select Codes Urinary/Genital Urinary/Genital CPT Codes: 11621 Cystoscopy and 24323 TVH+BS/O <250gr uterus
[2022-02-23 10:01] LABS: Bedside Glucose 167 mg/dL (74-106)
[2022-02-23] MEDS: HYDROcodone Bitartrate/Apap 5/325 Tablet PO (11:20)
== END 2022-02-23 12:57 | disposition home or self-care (01) ==
LOC: SDC 05:18 → AC 05:18
PROVIDERS: Anesthesiology; PCP Family Medicine; Referring Provider Obstetrics & Gynecology; Visit Provider Obstetrics & Gynecology
PROC: 0UT94ZZ Resection of Uterus, Percutaneous Endoscopic Approach (ICD-10-PCS; CPT 58571; principal; 2022-02-23 07:10)
DX: N93.9 Abnormal uterine and vaginal bleeding, unspecified (principal); M06.9 Rheumatoid arthritis, unspecified; E11.9 Type 2 diabetes mellitus without complications; Z68.34 Body mass index [BMI] 34.0-34.9, adult; Z78.0 Asymptomatic menopausal state; E66.9 Obesity, unspecified; N73.6 Female pelvic peritoneal adhesions (postinfective); N88.8 Other specified noninflammatory disorders of cervix uteri; N83.291 Other ovarian cyst, right side; N83.292 Other ovarian cyst, left side; E78.00 Pure hypercholesterolemia, unspecified; I10 Essential (primary) hypertension; Z86.718 Personal history of other venous thrombosis and embolism
CPT/HCPCS: 58571; 00840; 52000; 36415; 81025; 82962; 83036; 83735; 85027; 86850; 86900; 86901; 88307; 93005; J7120; A4216; J2405

== ENCOUNTER → 2022-04-16 | Outpatient (CLI) | payer OTHER, SELFPAY ==
--- NOTE | 2022-04-16 07:35 | BI_ITS ---
MAMMOGRAPHY - BILATERAL SCREENING REASON FOR EXAM: Female, 56 years old. Routine annual screening examination. PERTINENT HISTORY: Non-contributory. TECHNIQUE: Digital bilateral breast aldair (3D mammographic acquisition) in the CC and MLO projections. 2-D mediolateral oblique (MLO) and craniocaudad (CC) views of both breasts were obtained. CAD: Full Field Digital Mammography with Computer Added Detection was performed. COMPARISON: Comparison is made with prior study dated 04/07/2021 and 11/05/2019. FINDINGS: Breast Composition: The breasts are almost entirely fatty. There are no dominant masses or suspicious calcifications. Stable small benign-appearing bilateral axillary lymph nodes. No other significant abnormalities are identified. There has been no significant change since the prior study. BI/SCRN MAMM (CAD)W/ALDAIR BILAT IMPRESSION: Stable bilateral screening mammogram. Yearly follow-up mammogram recommended. (A) ASSESSMENT CATEGORY: BIRADS Category 2: Benign. A letter regarding these results will be sent to the patient by the facility within 30 days. Approximately 10% of breast cancers are not detected by mammography. A normal mammogram should not delay biopsy of a clinically suspicious abnormality. [id number] Electronically Signed: Michael Benitez MD at 10:29 EST ,
== END | disposition home or self-care (01) ==
LOC: OPBI 07:34
PROVIDERS: PCP Family Medicine; Visit Provider Obstetrics & Gynecology
DX: Z12.31 Encounter for screening mammogram for malignant neoplasm of breast (principal)
CPT/HCPCS: 77063; 77067

== ENCOUNTER → 2022-08-25 | Outpatient (CLI) | payer OTHER, SELFPAY ==
[2022-08-25 11:03] LABS: Vitamin B12 491 pg/mL (211-911); Vitamin D,25 Hydroxy 61.3 ng/mL
[2022-08-25 11:27] LABS: ALB/GLOB Ratio 1.1 RATIO (0.9-2.4); AST(SGOT) 16 U/L (15-37); Alanine Aminotransfer ALT/SGPT 30 U/L (13-56); Albumin, Serum 3.9 g/dL (3.2-5.0); Alkaline Phosphatase 95 U/L (45-117); Anion Gap 4 (5-15); BUN 16 mg/dL (7-18); BUN/Creat Ratio 22.9 RATIO (10-20); Calcium,Total 9.5 mg/dL (8.5-10.1); Chloride 108 mmol/L (98-107); EST Glomerular Filtration Rate 91 mL/min (>60); Est Glom Filt Rate - Afr Amer 110 mL/min (>60); Globulin 3.5 g/dL (2.2-4.2); Glucose 122 mg/dL (74-106); Protein, Total 7.4 g/dL (6.4-8.2); Sodium Level 137 mmol/L (136-145); Thyroid Stim Hormone (TSH) 1.84 uIU/mL (0.358-3.74)
[2022-08-25 14:10] LABS: Erythrocyte Sedimentation Rate 4 mm/hr (0-30)
== END | disposition home or self-care (01) ==
LOC: MFPLAB 09:22
PROVIDERS: PCP Family Medicine; Visit Provider Family Medicine
DX: E11.65 Type 2 diabetes mellitus with hyperglycemia (principal); M06.9 Rheumatoid arthritis, unspecified
CPT/HCPCS: 36415; 80053; 82306; 82607; 84443; 85652

== ENCOUNTER → 2023-02-15 | Outpatient (CLI) | payer OTHER, SELFPAY ==
[2023-02-15 11:38] LABS: AST(SGOT) 21 U/L (15-37); Alanine Aminotransfer ALT/SGPT 38 U/L (13-56); Albumin, Serum 3.8 g/dL (3.2-5.0); Alkaline Phosphatase 89 U/L (45-117); Anion Gap 5 (5-15); BUN 17 mg/dL (7-18); Calcium,Total 9.3 mg/dL (8.5-10.1); Chloride 108 mmol/L (98-107); Cholesterol 155 mg/dL (200); Creatinine, Serum 0.65 mg/dL (0.55-1.02); EST Glomerular Filtration Rate 99 mL/min (>60); Est Glom Filt Rate - Afr Amer 119 mL/min (>60); Globulin 3.8 g/dL (2.2-4.2); Glucose 122 mg/dL (74-106); High Density Lipoprotein 42 mg/dL; Potassium 4.2 mmol/L (3.5-5.1); Protein, Total 7.6 g/dL (6.4-8.2); Sodium Level 139 mmol/L (136-145); Triglycerides 153 mg/dL; Very Low Density Lipoprotein 31 mg/dL (5-40)
[2023-02-15 12:00] LABS: Hemoglobin A1c 6.9 % (3.8-5.6)
== END | disposition home or self-care (01) ==
LOC: MFPLAB 08:21
PROVIDERS: PCP Family Medicine; Visit Provider Family Medicine
DX: E11.65 Type 2 diabetes mellitus with hyperglycemia (principal)
CPT/HCPCS: 36415; 80053; 80061; 83036

== ENCOUNTER → 2023-08-25 | Outpatient (CLI) | payer OTHER, SELFPAY ==
[2023-08-25 10:46] LABS: Erythrocyte Sedimentation Rate 4 mm/hr (0-30)
[2023-08-25 10:47] LABS: Absolute Lymphocyte Count 2.05 X10^3/uL (0.83-4.51); Absolute Neutrophil Count 5.5 X10^3/uL (2.0-7.7); Basophil# 0.05 X10^3/uL; Basophil% 0.6 % (0-1); Eosinophil# 0.13 X10^3/uL; Eosinophils% 1.6 % (0-5); Hematocrit 53.4 % (37-47); Lymphocyte # 2.05 X10^3/ul (0.83-4.51); Lymphocyte % 25.1 % (19-41); Mean Corp Hgb Conc 33.7 g/dL (32-36); Mean Corpuscular Hgb 30.9 pg (27.0-32.0); Mean Corpuscular Volume 91.8 fL (81-99); Monocyte# 0.45 X10^3/uL; Monocyte% 5.5 % (0-10); NRBC Flagged by Analyzer 0 % (0-5); Neutrophil # 5.46 X10^3/uL (2.7-7.7); Platelet Count 184 K/mm3 (150-450); RBC Distribution Width CV 12.6 % (11.6-14.6); RBC Distribution Width SD 42.4 fl (35.1-43.9); Red Blood Count 5.82 M/mm3 (4.2-5.4); White Blood Count 8.2 K/mm3 (4.4-11.0)
[2023-08-25 11:04] LABS: Vitamin D,25 Hydroxy 57.7 ng/mL
[2023-08-25 11:37] LABS: ALB/GLOB Ratio 1.1 RATIO (0.9-2.4); AST(SGOT) 16 U/L (15-37); Alanine Aminotransfer ALT/SGPT 19 U/L (13-56); Albumin, Serum 3.8 g/dL (3.2-5.0); Alkaline Phosphatase 80 U/L (45-117); Anion Gap 7 (5-15); BUN 14 mg/dL (7-18); BUN/Creat Ratio 19.5 RATIO (10-20); Calcium,Total 9.2 mg/dL (8.5-10.1); Chloride 107 mmol/L (98-107); Cholesterol 190 mg/dL (200); Creatinine, Serum 0.72 mg/dL (0.55-1.02); EST Glomerular Filtration Rate 88 mL/min (>60); Est Glom Filt Rate - Afr Amer 107 mL/min (>60); Globulin 3.6 g/dL (2.2-4.2); Glucose 95 mg/dL (74-106); High Density Lipoprotein 48 mg/dL; Potassium 3.8 mmol/L (3.5-5.1); Protein, Total 7.4 g/dL (6.4-8.2); Sodium Level 140 mmol/L (136-145); Triglycerides 142 mg/dL; Very Low Density Lipoprotein 28 mg/dL (5-40)
[2023-08-26 13:40] LABS: Pathologist Review Reviewed
== END | disposition home or self-care (01) ==
PROVIDERS: PCP Family Medicine; Referring Provider Family Medicine; Visit Provider Family Medicine
DX: E11.9 Type 2 diabetes mellitus without complications (principal); M06.9 Rheumatoid arthritis, unspecified
CPT/HCPCS: 36415; 80053; 80061; 82043; 82306; 84443; 85025; 85652

== ENCOUNTER → 2023-09-21 | Outpatient (CLI) | payer OTHER, SELFPAY ==
--- NOTE | 2023-09-21 15:12 | BI_ITS ---
MAMMOGRAPHY - BILATERAL SCREENING 3-D TOMOSYNTHESIS REASON FOR EXAM: Female, 57 years old. screening PERTINENT HISTORY: No significant family history. TECHNIQUE: 2-D mammograms and 3-D Tomosynthesis of the breast (s) were performed. CAD was performed. COMPARISON: 04/16/2022 FINDINGS: The breast composition is composed of scattered fibroglandular density. Scattered benign calcifications are seen. No dense spiculated masses or suspicious microcalcifications are identified. No architectural distortion is identified. There is no skin thickening or retraction. There has been no significant change since the prior study. BI/SCRN MAMM (CAD)W/ALDAIR BILAT IMPRESSION: No mammographic signs of malignancy. Routine yearly mammograms recommended. ASSESSMENT CATEGORY: BIRADS Category 1: Negative. A letter regarding these results will be sent to the patient by the facility within 30 days. FOLLOW UP RECOMMENDATION: Yearly follow up mammogram recommended. (A) Approximately 10% of breast cancers are not detected by mammography. A normal mammogram should not delay biopsy of a clinically suspicious abnormality. Electronically Signed: Luis Angel Valdivia MD at 9:10 EDT ,
[2023-09-21 16:33] LABS: Absolute Lymphocyte Count 2.53 X10^3/uL (0.83-4.51); Absolute Neutrophil Count 6.1 X10^3/uL (2.0-7.7); Basophil# 0.06 X10^3/uL; Basophil% 0.6 % (0-1); Eosinophil# 0.24 X10^3/uL; Eosinophils% 2.5 % (0-5); Hematocrit 51.3 % (37-47); Hemoglobin 17.4 g/dL (12.0-15.0); Lymphocyte # 2.53 X10^3/ul (0.83-4.51); Mean Corp Hgb Conc 33.9 g/dL (32-36); Mean Corpuscular Hgb 30.5 pg (27.0-32.0); Mean Platelet Vol. 9.8 fl (6.2-12.0); Monocyte# 0.75 X10^3/uL; Monocyte% 7.7 % (0-10); NRBC Flagged by Analyzer 0 % (0-5); Neutrophil # 6.13 X10^3/uL (2.7-7.7); Platelet Count 213 K/mm3 (150-450); RBC Distribution Width CV 12.2 % (11.6-14.6); RBC Distribution Width SD 40.4 fl (35.1-43.9); White Blood Count 9.7 K/mm3 (4.4-11.0)
[2023-09-23 16:10] LABS: Erythropoietin 8.9 mIU/mL (2.6-18.5)
== END | disposition home or self-care (01) ==
PROVIDERS: PCP Family Medicine; Referring Provider Family Medicine; Visit Provider Family Medicine
DX: Z12.31 Encounter for screening mammogram for malignant neoplasm of breast (principal); R71.8 Other abnormality of red blood cells
CPT/HCPCS: 77063; 77067; 82668; 85025

== ENCOUNTER → 2024-02-29 | Outpatient (CLI) | payer OTHER, SELFPAY ==
[2024-02-29 09:29] LABS: Bacteria 0 SEEN /hpf (None Seen); Mucous, Urine 0 SEEN /hpf (<or=2+); Red Blood Cells-Urine 0 SEEN /hpf (0-5); White Blood Cells 0 SEEN /hpf (0-5)
[2024-02-29 12:09] LABS: Hematocrit 54.5 % (37-47); Mean Corp Hgb Conc 33.8 g/dL (32-36); Mean Corpuscular Hgb 31.9 pg (27.0-32.0); Mean Corpuscular Volume 94.6 fL (81-99); Mean Platelet Vol. 9.7 fl (6.2-12.0); Platelet Count 204 K/mm3 (150-450); RBC Distribution Width CV 12.4 % (11.6-14.6); Red Blood Count 5.76 M/mm3 (4.2-5.4); White Blood Count 9.3 K/mm3 (4.4-11.0)
[2024-02-29 12:31] LABS: Color, Urine Yellow (Yellow); Glucose, Dipstick 1000 mg/dl (Normal); Ketone-Dipstick Negative (Negative); Leukocyte Esterase-Dipstick Negative /ul (Negative); Nitrite-Dipstick Negative (Negative); Occult Blood-Urine 10 /ul (Negative); Protein-Dipstick Negative (Negative); Specific Gravity, Urine 1.015 (1.002-1.030); Urine Clarity Sl. Cloudy (Clear); Urine Urobilinogen Normal (Normal)
[2024-02-29 12:33] LABS: Urine Bilirubin Dipstick 6 mg/dL (Negative)
[2024-02-29 12:52] LABS: Anion Gap 6 (5-15); BUN 16 mg/dL (7-18); Calcium,Total 9.5 mg/dL (8.5-10.1); Chloride 110 mmol/L (98-107); Creatinine, Serum 0.67 mg/dL (0.55-1.02); EST Glomerular Filtration Rate 96 mL/min (>60); Est Glom Filt Rate - Afr Amer 116 mL/min (>60); Glucose 120 mg/dL (74-106); Magnesium 2.3 mg/dL (1.6-2.6); Potassium 4.1 mmol/L (3.5-5.1); Sodium Level 143 mmol/L (136-145)
[2024-02-29 13:10] LABS: Squamous Epithelial Cells - UA 0-5 SEEN /hpf (5-10)
[2024-02-29 13:11] LABS: Yeast-Urine 1+ /hpf (None Seen)
[2024-02-29 13:42] LABS: Hemoglobin 18.4 g/dL (12.0-15.0)
[2024-03-01 14:52] LABS: Pathologist Review Reviewed
== END | disposition home or self-care (01) ==
LOC: MTLAB 09:26
PROVIDERS: PCP Family Medicine; Referring Provider Family Medicine; Visit Provider Family Medicine
DX: I95.9 Hypotension, unspecified (principal)
CPT/HCPCS: 36415; 80048; 81001; 83735; 84443; 85027

== ENCOUNTER → 2024-03-30 | Outpatient (CLI) | payer OTHER, SELFPAY ==
--- NOTE | 2024-03-30 09:04 | US_ITS ---
STUDY: ABDOMINAL ULTRASOUND - RIGHT UPPER QUADRANT; ELASTOGRAPHY REASON FOR VISIT: Female, 58 years old. Polycythemia. TECHNIQUE: Ultrasound evaluation of the right upper quadrant was performed with real-time and static salazar-scale imaging. Point quantification shear wave elastography was performed ([employer]). TECHNICAL QUALITY: Adequate. COMPARISON: None. FINDINGS: Liver: The liver measures 16.4 cm. There is normal echogenicity of the liver. The bile ducts are within normal limits. There is hepatic color flow. The direction of portal flow is hepatopetal. There is no demonstrated mass lesion. Median liver stiffness measured 8.4 kPa. Gallbladder: Normal distended gallbladder. The gallbladder wall measures 1.5 mm. There is a negative sonographic Hendrix''s sign. There is no pericholecystic fluid. There are no gallstones. Small amount of sludge is seen in the gallbladder lumen. Common Bile Duct (C.B.D.): The common bile duct measures 2.5 mm. Pancreas: There is increased echogenicity of the pancreas. There is no demonstrated pancreatic mass or cyst. Right Kidney: Normal size of the right kidney. The right kidney measures 12.5 cm x 5.7 cm x 4.8 cm. Normal renal cortex. The right cortex measures 1.4 cm. There is no demonstrated renal mass or cyst. There is no right hydronephrosis. US/ABD Limited w/ Elastography IMPRESSION: 1. Liver stiffness measures 8.4 kPa compatible with F2-F3 (Mild to moderate liver fibrosis) Metavir score. Electronically Signed: Michael Benitez MD at 12:05 EST ,
[2024-03-30 10:39] LABS: Cholesterol 174 mg/dL (200); High Density Lipoprotein 71 mg/dL; Triglycerides 151 mg/dL; Very Low Density Lipoprotein 30 mg/dL (5-40)
== END | disposition home or self-care (01) ==
PROVIDERS: PCP Family Medicine; Referring Provider Internal Medicine Medical Oncology; Visit Provider Internal Medicine Medical Oncology
DX: E11.9 Type 2 diabetes mellitus without complications (principal); D75.1 Secondary polycythemia
CPT/HCPCS: 36415; 76705; 76981; 80061

== ENCOUNTER → 2024-04-20 | Outpatient (CLI) | payer OTHER, SELFPAY ==
--- NOTE | 2024-04-20 | CYSPIN_PTH ---
PATIENT: KELLY ARGUETA LOC: CT U#:[id number] AGE/SX: 58/F ROOM: RE04/20/[address]: Dr. Brandi Soni MD : 1965 BED: DIS: 04/20/2024 SPEC #: [id number] RECD: 04/20/24 17:49 STATUS: BRITTANEY MORELAND #: [id number] CARLOS: 04/20/24 00:[address]: Brandi Soni DEPT: CYTOLOGY RECD BY: Aleida Rodriguez ENTERED: 04/23/24 09:41 SP TYPE: CYSPIN FL OTHR DR: Dr. Wilton Horn MD Tissues: Urine Procedures: Pap Stain (control) Special Stain Group II Cytospin Fluid HEADER OPERATION: Not noted PRE-OP DIAGNOSIS: Hematuria TISSUE SUBMITTED: Urine DIAGNOSIS CYTOLOGY Urine for cytology (cytospin): Negative for high grade urothelial carcinoma (DCGUC), Celsa system category II. Acute inflammation. 04/23/2024 COMMENT Numerous organisms, consistent bacteria are noted. Special stain for fungi is positive for organisms (yeast), consistent with Abena species; matched control is appropriate. Correlation with clinical findings and appropriate follow up are necessary. CYTOLOGY STUDY Slides are reviewed. CYTOLOGY GROSS Received is 70 ml of yellow hazy fluid labeled with the patient's name and and designated per the requisition as urine. Submitted for cytology preparation. /CC:cc 04/23/2024 TC: 2 CPT: 63045
[2024-04-20 17:50] LABS: Cytology, Body Fluid / CSF SEE PATHOLOGY REPORT
== END | disposition home or self-care (01) ==
PROVIDERS: PCP Family Medicine; Referring Provider Urology; Visit Provider Urology
DX: R31.0 Gross hematuria (principal)
CPT/HCPCS: 88108; 88313

== ENCOUNTER 2024-04-27 15:30 | Outpatient (RCR) | payer OTHER, SELFPAY ==
--- NOTE | 2024-03-09 16:15 | HP.PTEVAL ---
Patient's Visit Information Visit Information Visit Information: KELLY ARGUETA is a 58 year old F referred to Physical Therapy by Dr. Wilton Horn MD with a diagnosis of MYALGIA. Date of Evaluation: 03/09/24 Physical Therapist: Papo Cantu, PT, Cert MDT, OCS Visit Plan Frequency: 2x /Week Duration: 4 Weeks Plan: PT INTERVENTIONS MANUAL THERAPY STM/TRACTION,US ,ICTX 14-18# X 15 MINS ,CERVICAL ROM/POSTURAL EX'S Subjective Subjective: This 58 y/o female presents to physical therapy with neck pain. Patient has had cervical pain many years. Seen DR Horn recommended PT no imaging. Patient has trigger point injections . Patient also get massage every 2 weeks. PT in past stated traction as helped. Patient has home traction unit. Location of pain left cervical spine . Denies paresthesia/tingling-. Aggravating factors sitting at work looking at computer ,driving. Alleviating factor massage home traction unit. Patient get frontal LORENZO. Patient has occasional dizziness . Denies nausea. Sleeping aggravates symptoms. Patient condition affects QOL and function. 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 STRENGTH: good CERVICAL ROM: flexion min loss ,extension mod loss ,rotation /lateral flexion mod loss pain on left Special Tests C/S Radiculapathy - Left Upper limb tension test: Negative C/S Radiculapathy - Right Upper limb tension test: Negative C/S Radiculapathy - Left Spurlings: Positive C/S Radiculapathy - Right Spurlings: Negative C/S Radiculapathy - Left Cervical distraction: Negative C/S Radiculapathy - Right Cervical distraction: Negative C/S Radiculapathy - Left Relief test: Negative C/S Radiculapathy - Right Relief test: Negative C/S Radiculapathy - Valsalva: Negative Sharp Becky: Negative Vertebral Artery Test: Negative Alar Ligament Test: Negative Balance/Special Test Scores Oswestry Neck Score: 20 Goals Goal 1:: Patient to be I with HEP cervical Goal Time Frame: 4-6 Weeks Goal 2:: Patient to improve cervical ROM for function of recovery for driving Goal Time Frame: 4-6 Weeks Goal 3:: Patient to demonstrate 50% improvement with less pain and improved function Goal Time Frame: 4-6 Weeks Goal 4:: Patient to improve neck oswestry score by 5 points to improve QOL and function Goal Time Frame: 4-6 Weeks Rehabilitation Potential Physical Therapy Diagnosis: This patient has cervical pain with possible stenosis and has h/o DDD with pain with positioning and motion testing thus benefit from skilled PT Rehabilitation Potential: Good Anticipated Interventions Patient/Client Instruction: Educate patient on: Condition and Plan of Care For the Purpose of:: To decrease pain, To increase ROM, To improve muscle performance and motor function, To improve ability to perform ADL's, To increase tolerance to activity/condition/position, To improve ability of physical actions for home/community/work/leisure, To improve health of tissue, To decrease soft tissue restriction, To increase flexibility/ROM and To improve tolerance to ADL's Therapeutic Exercise to Include: Strength training, Postural training, Flexibilty training and Active ROM For the Purpose of:: To decrease pain, To increase ROM, To improve muscle performance and motor function, To increase tolerance to activity/condition/position, To improve ability of physical actions for home/community/work/leisure, To improve health of tissue, To decrease soft tissue restriction, To increase flexibility/ROM and To improve tolerance to ADL's Manual Therapy Techniques to Include: Mobilization and Soft tissue mobilization Comment: CERVICAL For the Purpose of:: To decrease pain, To increase ROM, To improve nutrient delivery to tissue, To increase oxygenation perfusion, To improve health of tissue, To decrease soft tissue restriction and To increase flexibility/ROM TENS: Yes IF ES: Yes Cryotherapy (ice pack, ice massage): Yes Thermo therapy (hot pack): Yes Ultrasound (thermal/non thermal): Yes Intermittent cervical traction: Yes For the Purpose of:: To decrease pain, To increase ROM, To improve nutrient delivery to tissue, To increase oxygenation perfusion, To improve health of tissue and To decrease soft tissue restriction Text: Thank you for the opportunity to evaluate your patient. For Medicare and Medicare HMO plans, please review the plan of care and approve it. It will need to be FAXED BACK to us at [phone] for Medicare purposes. For Medicare only, by signing this I certify the plan of care. Please let me know if there are questions or concerns regarding this plan of care. Physician Signature: Date:
--- NOTE | 2024-09-05 14:50 | HP.PTDCNRP_ITS ---
Patient Information Patient Information: KELLY ARGUETA was seen in my office for initial evaluation on 03/09/24. The following Plan of Care was established for this patient: POC Established Initial Frequency: 2x /Week Initial Duration: 4 Weeks Anticipated Interventions Patient/Client Instruction: Educate patient on: Condition and Plan of Care For the Purpose of:: To decrease pain, To increase ROM, To improve muscle performance and motor function, To improve ability to perform ADL's, To increase tolerance to activity/condition/position, To improve ability of physical actions for home/community/work/leisure, To improve health of tissue, To decrease soft tissue restriction, To increase flexibility/ROM and To improve tolerance to ADL's Therapeutic Exercise to Include: Strength training, Postural training, Flexibilty training and Active ROM For the Purpose of:: To decrease pain, To increase ROM, To improve muscle per formance and motor function, To increase tolerance to activity/condition/position, To improve ability of physical actions for home/community/work/leisure, To improve health of tissue, To decrease soft tissue restriction, To increase flexibility/ROM and To improve tolerance to ADL's Manual Therapy Techniques to Include: Mobilization and Soft tissue mobilization Comment: CERVICAL For the Purpose of:: To decrease pain, To increase ROM, To improve nutrient delivery to tissue, To increase oxygenation perfusion, To improve health of tissue, To decrease soft tissue restriction and To increase flexibility/ROM TENS: Yes IF ES: Yes Cryotherapy (ice pack, ice massage): Yes Thermo therapy (hot pack): Yes Ultrasound (thermal/non thermal): Yes Intermittent cervical traction: Yes For the Purpose of:: To decrease pain, To increase ROM, To improve nutrient delivery to tissue, To increase oxygenation perfusion, To improve health of tissue and To decrease soft tissue restriction Last Seen Last Seen: This patient was last seen in our office . Pertinent comments regarding their Physical therapy will appear below: Patient was seen for myalgia for PT for manual therapy and postural ex's thus is d/c At this point I will be discontinuing this patient from physical therapy. I would be happy to see this patient again in the future if found appropriate by the physician. Thank you! Papo Cantu, PT, Cert MDT, OCS Balance/Gait/Functional tests Balance/Special Test Scores Oswestry Neck Score: 20
== END 2024-04-27 19:00 | disposition home or self-care (01) ==
LOC: PT 15:30
PROVIDERS: PCP Family Medicine; Referring Provider Family Medicine; Visit Provider Family Medicine
DX: M79.10 Myalgia, unspecified site (principal)
CPT/HCPCS: 97012; 97110; 97140; 97162; 97530